=== PATIENT | male | born 1945 | race Caucasian/White ===

== ENCOUNTER → 2023-12-08 11:38 | Outpatient (CLI) | payer OTHER, SELFPAY ==
[2023-12-08 13:43] LABS: Alanine Aminotransferase 35 IU/L (<50); Albumin 4.1 g/dL (3.5-5.0); Albumin Globulin Ratio 1.4 (1.0-2.8); Alkaline Phosphatase 97 U/L (38-126); Amylase 63 U/L (30-110); Aspartate Aminotransferase 41 IU/L (17-59); Bilirubin Total 0.5 mg/dL (0.2-1.3); Bilirubin Unconjugated 0.2 mg/dL (0.0-1.1); HEMOLYSIS < 15 (0-50); Lipase 13 U/L (23-300); Total Protein 7.1 g/dL (6.3-8.2)
== END ==
PROVIDERS: Referring Provider Chiropractor; Visit Provider Chiropractor
DX: B18.2 Chronic viral hepatitis C (principal); C25.9 Malignant neoplasm of pancreas, unspecified
CPT/HCPCS: 36415; 80076; 82150; 83690